=== PATIENT | male | born 1945 | race Asian ===

== ENCOUNTER 2019-04-07 11:03 | Outpatient (CLI) | payer MEDICARE ==
--- NOTE | 2019-04-07 12:15 | ULT ---
ULTRASOUND ABDOMINAL AORTA: Date: 04/07/19 HISTORY: Abdominal pain. FINDINGS: The abdominal aortic measurements are as follows: Proximal: 2.3 x 2.4 cm Mid: 1.8 x 2.2 cm Distal: 1.4 x 1.4 cm IMPRESSION: No evidence of abdominal aortic aneurysm. POS: [facility]
== END 2019-04-07 11:04 | disposition home or self-care (01) ==
LOC: SCSULT 11:03
PROVIDERS: ATTEND Internal Medicine
DX: R10.13 Epigastric pain (principal)
CPT/HCPCS: 76775

== ENCOUNTER 2021-12-20 09:18 | Outpatient (CLI) | payer MEDICARE ==
[2021-12-20 11:04] LABS: Hemoglobin 15.8 g/dL (13.5-17.5); Mean Corpuscular HGB CONC 34.6 g/dL (32.0-36.0); Mean Corpuscular Hemoglobin 30.9 pg (27.0-33.0); Mean Corpuscular Volume 89.2 fl (81.2-95.1); Mean Platelet Volume 11.5 fl (7.4-10.4); Platelet Count 163 10x3/uL (150-450); RBC Distribution Width 12.3 % (11.5-14.5); Red Blood Cell (RBC) Count 5.11 10x6/uL (4.32-5.72); White Blood Cell (WBC) Count 3.7 10x3/uL (3.5-10.5)
[2021-12-20 11:35] LABS: Anion Gap 15 mmol/L (10-20); BUN (Urea Nitrogen) 21 mg/dL (8.4-25.7); Calc. Creatinine Clearance 0 mL/min (70-130); Calcium 9.1 mg/dL (7.8-10.44); Carbon Dioxide 22 mmol/L (23-31); Chloride 103 mmol/L (98-107); Estimated GFR 71; Glucose 126 mg/dL (83-110); INR-International Normal Ratio 0.9; PTT 27.9 sec (22.0-33.0); Prothrombin Time 10.2 sec (9.5-12.1); Sodium 136 mmol/L (136-145)
== END 2021-12-20 09:19 | disposition home or self-care (01) ==
LOC: LABBT 09:18
PROVIDERS: ATTEND Internal Medicine Cardiovascular Disease
DX: Z01.812 Encounter for preprocedural laboratory examination (principal); Z20.822 Contact with and (suspected) exposure to COVID-19
CPT/HCPCS: 80048; 85027; 85610; 85730; 87811

== ENCOUNTER 2021-12-25 06:36 | Day surgery (SDC) | payer MEDICARE, OTHER ==
[2021-12-20 13:01] VITALS: BMI 24.2
[2021-12-25] MEDS ORDERED: Heparin 25,000 units/D5W 500 ML ONE (06:55)
[2021-12-25] MEDS ORDERED: Protamine Sulfate 50 MG/5 ML VIAL ONE ×2 (06:55→11:49)
[2021-12-25] MEDS ORDERED: Isoproterenol 0.2 MG/1 ML AMP ONE (06:55)
[2021-12-25] MEDS ORDERED: Lidocaine 1% 50ML VIAL ONE (06:55)
[2021-12-25] MEDS ORDERED: Heparin 10,000 UNITS/ 10 ML VIAL ONE ×2 (06:55→11:48)
[2021-12-25] MEDS ORDERED: Phenylephrine 10 MG/ML VIAL ONE (08:30)
[2021-12-25] MEDS ORDERED: PROPOFOL 200 MG/20 ML VIAL ONE (08:30)
[2021-12-25] MEDS ORDERED: Dexamethasone 20 MG/5 ML VIAL ONE (08:30)
[2021-12-25] MEDS ORDERED: Ondansetron PF 4 MG/2 ML Vial ONE (08:30)
[2021-12-25] MEDS ORDERED: Succinylcholine 200 MG/10 ml SYRINGE FS ONE (08:30)
[2021-12-25] MEDS ORDERED: Lidocaine 1% MPF 2 ML VIAL ONE (08:30)
[2021-12-25] MEDS ORDERED: Rocuronium Bromide 10 MG/ML (10ML VIAL) ONE (08:30)
[2021-12-25] MEDS ORDERED: Fentanyl 100 MCG/2 ML VIAL ONE (08:35)
[2021-12-25] MEDS ORDERED: Propofol 500 MG/50 ML VIAL ONE ×2 (08:35→10:04)
[2021-12-25] MEDS ORDERED: SUGAMMADEX SODIUM 200 MG/2 ML VIAL ONE (11:57)
[2021-12-25] MEDS ORDERED: Furosemide 40 MG TAB PO PRN (12:09)
[2021-12-25] MEDS ORDERED: Potassium Chloride 20 MEQ TAB PO PRN (12:09)
[2021-12-25] MEDS ORDERED: Sucralfate 1 GM TAB PO SCH (17:00)
[2021-12-25] MEDS ORDERED: Rivaroxaban 10 MG TAB PO SCH (18:00)
== END 2021-12-25 16:53 | disposition home or self-care (01) ==
LOC: SDC 06:36
PROVIDERS: ATTEND Internal Medicine Cardiovascular Disease
PROC: 02583ZZ Destruction of Conduction Mechanism, Percutaneous Approach (ICD-10-PCS; principal; 2021-12-25)
PROC: 02K83ZZ Map Conduction Mechanism, Percutaneous Approach (ICD-10-PCS; 2021-12-25)
PROC: 4A023FZ Measurement of Cardiac Rhythm, Percutaneous Approach (ICD-10-PCS; 2021-12-25)
PROC: 4A0234Z Measurement of Cardiac Electrical Activity, Percutaneous Approach (ICD-10-PCS; 2021-12-25)
DX: I47.1 Supraventricular tachycardia (principal); E78.5 Hyperlipidemia, unspecified; Z79.899 Other long term (current) drug therapy
CPT/HCPCS: 85347; 93005; 93623; 93655; 93656; 93657; 93662; C1730; C1760; C1769; C1894; J1100; J1644; J2370; J2405; J2704; J2720; J3010; J3490